=== PATIENT | male | born 1945 | race African-American/Black ===

== ENCOUNTER → 2019-10-18 | Outpatient (CLI) | payer OTHER | END | disposition home or self-care (01) | LOC: CVU 08:24 | PROVIDERS: ATTEND Internal Medicine | DX: I08.8 Other rheumatic multiple valve diseases (principal); I10 Essential (primary) hypertension; Z87.891 Personal history of nicotine dependence | CPT/HCPCS: 93306 ==

== ENCOUNTER → 2019-12-05 | Outpatient (CLI) | payer OTHER | END | disposition home or self-care (01) | LOC: RAD 08:26 | PROVIDERS: ATTEND Internal Medicine | DX: I25.10 Atherosclerotic heart disease of native coronary artery without angina pectoris (principal); M06.9 Rheumatoid arthritis, unspecified; J98.11 Atelectasis | CPT/HCPCS: 71250 ==